=== PATIENT | female | born 1945 | race Caucasian/White ===

== ENCOUNTER → 2024-08-18 | Outpatient (CLI) | payer MEDICARE ==
--- NOTE | 2024-08-28 13:25 | MM ---
Reason for Exam: Screening (asymptomatic). Last mammogram was performed 1 year(s) and 1 month(s) ago. Patient History: Menarche at age 14. Patient has no children. Postmenopausal. Estrogen for 10 years from age 52 until age 62. Sister had breast cancer, age 48. Risk Values: Maria Alejandra 5 year model risk: 3.4%. NCI Lifetime model risk: 6.5%. Prior Study Comparison: 02/02/2022 Bilateral Screening Mammogram, [facility]. 08/13/2023 Bilateral Screening Mammogram, [facility]. Tissue Density: The breasts are heterogeneously dense, which may obscure small masses. Findings: Analyzed By CAD. Right breast: There is no suspicious group of microcalcifications or new suspicious mass. Left breast: There is no suspicious group of microcalcifications or new suspicious mass. Overall Assessment: Negative, BI-RAD 1 Management: Screening Mammogram of both breasts in [address] [facility] will attempt to contact patient to return for supplemental views and ultrasound if indicated. Patient should continue monthly self-breast exams. A clinical breast exam by your physician is recommended on an annual basis. This exam should not preclude additional follow-up of suspicious palpable abnormalities. Note on Maria Alejandra scores and lifetime risk: 1. A Maria Alejandra score greater than 3% is considered moderate risk. If this is the case, consider specialist referral to assess eligibility for a risk reducing agent. 2. If overall lifetime risk for the development of breast cancer is 20% or higher, the patient may qualify for future screening with alternating mammogram and breast MRI. [facility], , 08/18/2024 12:23 PM. Electronically signed and approved by: Christiano Allen DO
== END | disposition home or self-care (01) ==
LOC: RADMAMWWP 10:55
PROVIDERS: ATTEND Family Medicine
DX: Z12.31 Encounter for screening mammogram for malignant neoplasm of breast (principal); Z78.0 Asymptomatic menopausal state; Z80.3 Family history of malignant neoplasm of breast; R92.333 Mammographic heterogeneous density, bilateral breasts
CPT/HCPCS: 77063; 77067

== ENCOUNTER → 2025-03-29 | Outpatient (CLI) | payer MEDICARE, OTHER ==
[2025-03-29 07:45] LABS: HCT 35.1 % (37.2-46.3); HGB 11.9 g/dL (12.0-15.0); MCH 31.6 pg (27.0-32.0); MCHC 33.9 g/dL (32.0-37.0); MCV 93.4 fL (80.0-97.0); Platelet Count 197 10*3/uL (140-440); RBC 3.76 10*6/uL (4.10-5.20); RDW 12.1 % (11.5-14.5); WBC 3.24 10*3/uL (4.50-10.00)
[2025-03-29 08:01] LABS: African American GFR (CKD) 79 (>60 ml/min/1.73 sqM); Anion Gap 8 mmol/L; Blood Urea Nitrogen 13 mg/dL (7-17); Carbon Dioxide 24 mmol/L (22-30); Chloride 99 mmol/L (98-107); Non-African American GFR(CKD) 68 (>60 ml/min/1.73 sqM); Sodium 131 mmol/L (137-145)
== END | disposition home or self-care (01) ==
LOC: LABPAT 07:22
PROVIDERS: ATTEND Internal Medicine Interventional Cardiology
DX: Z01.812 Encounter for preprocedural laboratory examination (principal); R94.39 Abnormal result of other cardiovascular function study
CPT/HCPCS: 80051; 82565; 84520; 85027

== ENCOUNTER → 2025-03-29 | Day surgery (SDC) | payer MEDICARE, OTHER ==
[2025-03-28 10:10] VITALS: BMI 29.6
[~2025-03-29] MED LIST: ALPRAZolam 0.25 MG TAB PO PRN; ALPRAZolam 0.5 MG TAB PO PRN; ASPIRIN 81 MG PO SCH; ATORVASTATIN 40 MG TAB PO SCH; ATORVASTATIN 80 MG TAB PO STA; CLOPIDOGREL 75 MG TAB PO SCH; LOSARTAN 25 MG TAB PO SCH; NITROGLYCERIN SL TABS 0.4 MG TAB SUBLINGUAL PRN; RX INFO: IV CONTRAST WAS GIVEN 1 EACH MISC MISCELLANE PRN
[2025-03-29] MEDS: ASPIRIN 325 MG TAB PO STA (07:49)
[2025-03-29] MEDS: SODIUM CHLORIDE 0.9% 1,000 ML in EMPTY BAG 1 BAG IV SCH (07:49)
[2025-03-29] MEDS: IV FLUID CONTINUATION 1,000 ML IV ONE (08:00)
[2025-03-29 08:08] VITALS: TEMP 97.9
[2025-03-29 08:27] LABS: Basophils # (A) 0.03 10*3/uL (0.00-0.10); Basophils % (A) 0.9 %; Eosinophils # (A) 0.26 10*3/uL (0.04-0.35); Eosinophils % (A) 8.1 %; HCT 33.7 % (37.2-46.3); HGB 11.7 g/dL (12.0-15.0); Lymphocytes # (A) 0.53 10*3/uL (0.90-5.00); Lymphocytes % (A) 16.5 %; MCH 31.5 pg (27.0-32.0); MCHC 34.7 g/dL (32.0-37.0); MCV 90.8 fL (80.0-97.0); Mean Platelet Volume 9.1 fL (9.5-12.2); Monocytes # (A) 0.36 10*3/uL (0.20-1.00); Monocytes % (A) 11.2 %; Neutrophils # (A) 2.03 10*3/uL (1.80-7.70); Platelet Count 193 10*3/uL (140-440); RBC 3.71 10*6/uL (4.10-5.20); WBC 3.22 10*3/uL (4.50-10.00)
[2025-03-29 08:39] LABS: African American GFR (CKD) 82 (>60 ml/min/1.73 sqM); Anion Gap 8 mmol/L; Blood Urea Nitrogen 13 mg/dL (7-17); Calcium 9.4 mg/dL (8.4-10.2); Carbon Dioxide 22 mmol/L (22-30); Chloride 103 mmol/L (98-107); Glucose 86 mg/dL (74-99); Non-African American GFR(CKD) 71 (>60 ml/min/1.73 sqM); Potassium 4.1 mmol/L (3.5-5.1); Sodium 133 mmol/L (137-145)
[2025-03-29] MEDS: HEPARIN SODIUM,PORCINE 10,000 UNIT in SODIUM CHLORIDE 0.9% 1,000 ML IRRIGATION PRN (09:33)
[2025-03-29] MEDS: HEPARIN SODIUM,PORCINE (1 ML) 2,500 UNIT in SODIUM CHLORIDE 0.9% 250 ML IRRIGATION PRN (09:33)
[2025-03-29] MEDS: LIDOCAINE 1% INJ 10MG/ML (20 ML MDV) SQ ONE (09:47)
[2025-03-29] MEDS: fentaNYL (PF) 50 MCG/1 ML VIAL IVP ONE (09:47)
[2025-03-29] MEDS: VERAPAMIL 2.5 MG/ML 4 ML VIAL INTRAARTER ONE (09:48)
[2025-03-29] MEDS: HEPARIN SODIUM 1,000 UN/ML (10ML VL) IVP ONE ×3 (09:52→10:16)
[2025-03-29] MEDS: CLOPIDOGREL 75 MG TAB PO ONE (10:23)
[2025-03-29] MEDS: IOPAMIDOL-370 100ML BTL INTRATHECA ONE (10:50)
[2025-03-29] MEDS: SODIUM CHLORIDE 0.9% 1,000 ML IV SCH (11:00)
[2025-03-29] MEDS: ONDANSETRON 4 MG/2 ML VIAL IVP STA (11:07)
--- NOTE | 2025-03-29 11:13 | P.CARDCATH ---
Date of Procedure: 03/29/25 Description of Procedure: Cardiac Catheterization: The patient is a 80-year-old female with a known history of hypertension who has been complaining of significant progression in her dyspnea on exertion, she had an abnormal MPI. Recommendations were made regarding cardiac catheterization, the risks and the complications were discussed with the patient who is in full understanding and agreement. Procedure Description: Patient was brought to microbiology lab manager in fasting semi-sedated state after receiving Fentanyl and Benadryl achieiving moderate conscious sedated state. Using Xylocaine Anesthesia and modified Seldinger technique, a 6-[place] sheath was introduced in the right radial artery . Subsequently, selective coronary angiography was performed using a 5-[place]uneian 3.5 bend left Terri catheter. Multiple views of the coronary artery including hemiaxial views were obtained. Attempt to cannulate the right coronary artery using a 5 [place] 3.5 and 5 bend right Terri were unsuccessful. 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 Attempt to cannulate the right coronary artery selectively using a 6 [place] multipurpose 2 was not successful. Nonselective images were obtained. The left Terri catheter was used to cross the aortic valve and LVEDP was calculated. PCI: After removing the catheters a 6 [place] CLS 3.5 guiding catheter was introduced and after cannulating the left main a 0.014 BMW J-wire was positioned in the distal first diagonal branch. A 2.5 x 12 mm trek balloon was advanced and 1 inflation at 8 deepali was done. After removing the balloon a [place] eye IVUS catheter was advanced and images were obtained. After removing the catheter a 2.5 x 15 mm Xience Skypoint stent was advanced and deployed at 16 deepali. After removing the catheter repeat IVUS imaging was performed. Subsequently the wire was removed and images were obtained and revealed stable successful stenting. Following that, catheter and sheath were removed. Hemostasis was obtained with deployment of vascular band . There was no immediate complication. Patient was returned to room in stable condition. Of note, the patient received a total of 5500 units of intravenous heparin as well as intra-arterial verapamil. She received an oral loading dose of clopidogrel. Her ACT was monitored. She had no further significant EKG changes. Findings: Left main: This is a large size vessel, bifurcating into LAD and left circumflex, left main has no significant obstructive disease LAD: This is a large size vessel, reaching to the apex with a wraparound apex segment. The LAD gives rise to a proximal diagonal branch that has a 95% stenosis in the proximal segment. 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 Nonselective images were obtained and revealed no significant obstructive disease Left Ventriculogram: Not performed. Aortogram: Revealed a tricuspid aortic valve with no aortic regurgitation and anomalous origin of the right coronary artery Hemodynamics: There was no gradient across the aortic valve, LVEDP was 16-18 mmHg Conclusion: 1. Severe stenosis in the first diagonal branch 2. Mild disease in the proximal LAD 3. Nonselective images of the anomalous origin of the right coronary artery with no evidence of high-grade stenosis 4. Successful stenting of the first diagonal branch with reduction stenosis from 95% to less than 5% with IVUS imaging and BALDEV-3 flow Recommendations: The patient will continue on aspirin and clopidogrel without any interruption for 6 months in addition to aggressive coronary risks modification, attempting to maintain LDL below 70 mg/dL. The findings and the recommendations were discussed with the patient and the family and they were in full understanding and agreement. Duration of sedation is 60 minutes.
[2025-03-29 14:04] VITALS: RESP 14
[2025-03-29 14:05] VITALS: BP 155/90; PULSE 64
== END | disposition home or self-care (01) ==
LOC: CATHCVL 07:34
PROVIDERS: ATTEND Internal Medicine Interventional Cardiology
DX: R94.39 Abnormal result of other cardiovascular function study (principal); R06.09 Other forms of dyspnea; I10 Essential (primary) hypertension; Z79.82 Long term (current) use of aspirin
CPT/HCPCS: 92978; 93458; 93567; 80048; 85025; C9600; C1769 ×3; C1887 ×2; C1725; C1894; C1874; C1753; J1644 ×3; J2405; J2003; Q9967; J3010